=== PATIENT | male | born 1990 | race Caucasian/White ===

== ENCOUNTER 2019-03-05 07:33 | Inpatient (IN) | payer MEDICAID ==
[~2019-03-05] VITALS: Ht 170.2 cm; Wt 64.3 kg
[2019-03-05 08:19] LABS: Urine Bacteria NONE SEEN /hpf (None Seen); Urine Blood Negative /uL (Negative); Urine Specific Gravity 1.014 (1.001-1.035); Urine WBC <1 /hpf (0 - 3)
[2019-03-05 08:52] LABS: Basophils # (auto) 0 uL; Basophils % (auto) 0.5 % (0.0-2.0); Eosinophils # (auto) 0 uL; Eosinophils % (auto) 0.5 % (0.0-7.0); Hematocrit 43.2 % (41.0-53.0); Hemoglobin 15.3 g/dL (13.5-17.5); Lymphocytes # (auto) 1.3 uL; Lymphocytes % (auto) 22.3 % (10.0-50.0); Mean Corpuscular Hemoglobin 32.6 pg (28.0-32.0); Mean Corpuscular Hgb Conc. 35.5 g/dL (32.0-36.0); Mean Corpuscular Volume 91.8 fL (80.0-100.0); Monocytes # (auto) 0.4 uL; Neutrophils % (auto) 69.7 % (37.0-80.0); Nucleated Red Blood Cells % 0.1 %; Platelet Count (auto) 230 10^3/uL (140-450); Red Cell Distribution Width 12.8 % (11.8-14.3); White Blood Cell 5.8 10^3/uL (4.4-10.8)
[2019-03-05 09:03] LABS: Albumin 4.3 g/dL (3.4-5.0); Anion Gap 10 (5-15); Blood Urea Nitrogen 14 mg/dL (7-18); Calcium 9.2 mg/dL (8.5-10.1); Carbon Dioxide 26 mmol/L (21-32); Chloride 105 mmol/L (98-107); Glucose 108 mg/dL (74-106); Potassium 3.9 mmol/L (3.5-5.1); Sodium 141 mmol/L (136-145)
[2019-03-05 09:05] LABS: Alanine Aminotransferase 69 U/L (16-61); BUN/Creatinine Ratio 14.4; GFR African American 118 mL/min; GFR Non-African American 97 mL/min
[2019-03-05 09:09] LABS: Alkaline Phosphatase 95 U/L (45-117); Aspartate Aminotransferase 37 U/L (15-37); Bilirubin, Total 0.6 mg/dL (0.2-1.0); Total Protein 7.9 g/dL (6.4-8.2)
[2019-03-05] MEDS ORDERED: ONDANSETRON HCL 4 MG/2 ML VIAL IV ONE (11:30)
[2019-03-05] MEDS ORDERED: MORPHINE SULF INJ 2 MG/ML SYRINGE 1ML IV ONE (11:30)
[2019-03-05] MEDS ORDERED: SODIUM CHLORIDE 0.9% 1,000 ML IV ONE (11:30)
[2019-03-05 11:40] LABS: Amylase 94 U/L (25-115); Lipase 133 U/L (73-393)
[2019-03-05] MEDS ORDERED: NITROGLYCERIN 0.4 MG SL TAB SL PRN (12:45)
[2019-03-05] MEDS ORDERED: ONDANSETRON HCL 4 MG/2 ML VIAL IV PRN (12:45)
[2019-03-05] MEDS ORDERED: MORPHINE SULF INJ 2 MG/ML SYRINGE 1ML IV PRN (12:45)
[2019-03-05] MEDS ORDERED: MORPHINE SULFATE 4 MG/ML SYR/VIAL IV PRN (12:45)
--- NOTE | 2019-03-05 14:45 | NUR ---
[facility] admit from ER VE[facility],TASNEEM admitted to [facility] after SBAR received. Patient oriented to Jyoti Beaulieu, primary RN, unit, room, bed, and unit policies regarding patient care and visiting hours. Patient weighed by bedscale and encouraged to call if they need something. All questions and concerns addressed, patient verbalized understanding.
[2019-03-05] MEDS ORDERED: GOLYTELY 4L KIT PO ONE (16:45)
[2019-03-05 17:07] VITALS: BP 130/76
[2019-03-05 17:55] LABS: INR 0.99 (0.9-1.15)
[2019-03-05] MEDS: DOCUSATE SOD 100 MG CAP PO SCH (21:24)
[2019-03-05 22:00] VITALS: BP 135/84
[2019-03-05] MEDS ORDERED: TEMAZEPAM 15 MG CAP PO ONE (22:30)
[2019-03-06 05:00] VITALS: BP 134/69
[2019-03-06] MEDS ORDERED: GOLYTELY 4L KIT PO ONE (06:00)
--- NOTE | 2019-03-06 08:00 | NUR ---
Opening Shift Note Assumed care of patient, awake and alert. No S/S of distress/SOB or pain. Maintained on NPO status. Consents for EGD/Colonoscopy signed. Instructed on POC and to call for assist PRN, will continue to monitor for changes Q1hr and PRN.
[2019-03-06] MEDS ORDERED: SODIUM CHLORIDE LOCK 10 ML ONE (08:25)
[2019-03-06] MEDS ORDERED: LIDOCAINE VISCOUS 2% 15ML UD ONE (08:25)
[2019-03-06] MEDS ORDERED: diphenhdrAMINE HCL 50 MG/1 ML VL ONE (08:26)
[2019-03-06 09:00] VITALS: BP 129/61
--- NOTE | 2019-03-06 09:45 | NUR ---
Patient brought to Pre-op via bed for EGD/Colonoscopy to be performed by Dr. Serrano. Gave reports to Lizbeth BENNETT.
[2019-03-06] MEDS ORDERED: PANTOPRAZOLE 40 MG TAB PO SCH (10:00)
[2019-03-06] MEDS: DOCUSATE SOD 100 MG CAP PO SCH (10:00)
[2019-03-06] MEDS: fentaNYL CITRATE 100 MCG/2 ML VL ONE ×3 (11:05→11:12)
[2019-03-06] MEDS: MIDAZOLAM HCL 5 MG/ML-1ML VIAL ONE ×3 (11:05→11:12)
--- NOTE | 2019-03-06 12:05 | NUR ---
Patient back to room. he is drowsy status post EGD and colonoscopy. Report received from Adilene BENNETT PACU
[2019-03-06 13:06] LABS: Basophils # (auto) 0 uL; Basophils % (auto) 0.7 % (0.0-2.0); Eosinophils # (auto) 0 uL; Eosinophils % (auto) 0.7 % (0.0-7.0); Hemoglobin 14.7 g/dL (13.5-17.5); Lymphocytes # (auto) 1.1 uL; Lymphocytes % (auto) 22.4 % (10.0-50.0); Mean Corpuscular Hemoglobin 32.5 pg (28.0-32.0); Monocytes # (auto) 0.4 uL; Monocytes % (auto) 7.2 % (0.0-12.0); Neutrophils # (auto) 3.5 uL; Nucleated Red Blood Cells % 0.1 %; Platelet Count (auto) 196 10^3/uL (140-450); Red Blood Cells 4.52 10^6/uL (4.5-5.90); White Blood Cell 5.1 10^3/uL (4.4-10.8)
[2019-03-06] MEDS ORDERED: PANT40T PO (14:07)
[2019-03-06 15:47] VITALS: BP 117/66
[2019-03-06 16:54] VITALS: BP 115/65
--- NOTE | 2019-03-06 16:58 | NUR ---
Discharge instructions given as ordered. Encourage to follow up with PMD, Dr. Aletha Bee on March 16, 2019 at 1500 and follow up with GI Dr. Serrano in one week as instructed. All questions and concerns addressed. Patient verbalized understanding. Medication reconciliation form completed and copy given to patient. IV removed with catheter intact, pressure dressing applied. Patient taken to vehicle via wheelchair with all personal belongings, accompanied by staff and family member. No distress noted at time of departure.
== END 2019-03-06 17:00 | disposition home or self-care (01) | DRG 241 ==
LOC: ER 07:33 → OVERFLOW 07:34 → TELE-CENTR 14:46 → CENTRAL 15:04
PROVIDERS: ADMIT Nurse Practitioner Acute Care; ATTEND Internal Medicine
PROC: 0DB68ZX Excision of Stomach, Via Natural or Artificial Opening Endoscopic, Diagnostic (ICD-10-PCS; principal; 2019-03-06 11:01)
PROC: 0DBN8ZZ Excision of Sigmoid Colon, Via Natural or Artificial Opening Endoscopic (ICD-10-PCS; 2019-03-06 11:01)
DX: K29.71 Gastritis, unspecified, with bleeding (principal); K59.00 Constipation, unspecified; K63.5 Polyp of colon; Z86.19 Personal history of other infectious and parasitic diseases; Z87.11 Personal history of peptic ulcer disease
CPT/HCPCS: 36415; 74176; 80053; 81001; 82150; 83690; 85025; 85610; 96361; 96374; 96375; G0378; J2250; J2405

== ENCOUNTER 2020-03-21 09:12 | Emergency (ER) | payer MEDICAID ==
[~2020-03-21] VITALS: Ht 170.2 cm; Wt 65.8 kg
[~2020-03-21 09:12] MED LIST: PANT40T PO
[2020-03-21] MEDS ORDERED: METHOCARBAMOL 500 MG TAB PO ONE (10:15)
[2020-03-21] MEDS ORDERED: IBUPROFEN 800 MG TAB PO ONE (10:15)
[2020-03-21 10:21] VITALS: BP 136/81
== END 2020-03-21 10:32 | disposition home or self-care (01) ==
LOC: ER 09:12
DX: S33.5XXA Sprain of ligaments of lumbar spine, initial encounter (principal); W18.09XA Striking against other object with subsequent fall, initial encounter; Y93.E1 Activity, personal bathing and showering; Y92.89 Other specified places as the place of occurrence of the external cause; Y99.8 Other external cause status
CPT/HCPCS: 72100

== ENCOUNTER 2021-09-29 13:09 | Emergency (ER) | payer MEDICAID ==
[~2021-09-29] VITALS: Ht 172.7 cm; Wt 65.8 kg
[2021-09-29 13:39] VITALS: BP 167/96
[2021-09-29] MEDS ORDERED: KETOROLAC TROMETH 60MG/2ML VIAL IM ONE (13:45)
[2021-09-29] MEDS ORDERED: NAPR500T31 PO (14:34)
== END 2021-09-29 14:42 | disposition home or self-care (01) ==
LOC: ER 13:09
DX: S60.012A Contusion of left thumb without damage to nail, initial encounter (principal); X58.XXXA Exposure to other specified factors, initial encounter; Y93.89 Activity, other specified; Y92.89 Other specified places as the place of occurrence of the external cause; Y99.8 Other external cause status
CPT/HCPCS: 73130; 96372; 99283; J1885

== ENCOUNTER → 2022-07-03 | Emergency (ER) | payer MEDICAID ==
[~2022-07-03] MED LIST changes: +IBUP800T27 PO; +NAPR500T31 PO
== END | disposition left against medical advice (07) ==
LOC: ER 21:49
DX: M79.642 Pain in left hand (principal); Z53.21 Procedure and treatment not carried out due to patient leaving prior to being seen by health care provider

== ENCOUNTER 2022-07-04 06:40 | Emergency (ER) | payer MEDICAID ==
[~2022-07-04] VITALS: Ht 170.2 cm; Wt 65.9 kg
[~2022-07-04 06:40] MED LIST changes: -IBUP800T27 PO
[2022-07-04 07:32] VITALS: BP 147/89
[2022-07-04] MEDS ORDERED: traMADol HCL 50 MG TAB PO ONE (08:00)
[2022-07-04] MEDS ORDERED: IBUP800T27 PO (09:31)
== END 2022-07-04 09:35 | disposition home or self-care (01) ==
LOC: ER 06:40
DX: S60.222A Contusion of left hand, initial encounter (principal); W22.8XXA Striking against or struck by other objects, initial encounter; Y93.89 Activity, other specified; Y92.89 Other specified places as the place of occurrence of the external cause; Y99.8 Other external cause status
CPT/HCPCS: 73130